=== PATIENT | male | born 1945 | race Two or more races ===

== ENCOUNTER 2020-09-08 18:01 | Emergency (ER) | payer OTHER ==
[~2020-09-08] VITALS: Ht 170.2 cm; Wt 77.1 kg
[2020-09-08 18:24] VITALS: BP 126/75
== END 2020-09-08 20:31 | disposition left against medical advice (07) ==
LOC: ER 18:05
DX: S00.83XA Contusion of other part of head, initial encounter (principal); E11.9 Type 2 diabetes mellitus without complications; I10 Essential (primary) hypertension; Z88.6 Allergy status to analgesic agent; W18.2XXA Fall in (into) shower or empty bathtub, initial encounter; Y93.89 Activity, other specified; Y92.091 Bathroom in other non-institutional residence as the place of occurrence of the external cause; Y99.8 Other external cause status
CPT/HCPCS: 70450; 72125